=== PATIENT | female | born 1990 | race African-American/Black ===

== ENCOUNTER 2023-11-13 10:16 | Emergency (ER) | payer SELFPAY ==
[2023-11-13] MEDS ORDERED: NA CHLORIDE 0.9% 1,000 ML ONE (11:08)
[2023-11-13] MEDS ORDERED: PANTOPRAZOLE 40 MG INJ ONE (11:09)
[2023-11-13 11:40] LABS: Albumin 3.6 g/dL (3.4-5.0); Anion Gap 7.7 mEq/L (5.0-15.0); Bilirubin Total 0.4 mg/dL (0.2-1.0); Globulin 3.7 g/dL (2.3-3.5); Potassium 3.7 mEq/L (3.5-5.1); Protein, Total 7.3 g/dL (6.4-8.2)
[2023-11-13 11:42] LABS: PT Prothrombin Time 11.5 SECONDS (9.5-12.5); PTT, Activated Partial Thromb 34.2 SECONDS (24.3-36.9); Protime INR 1.05
[2023-11-13 12:38] LABS: Absolute Eosinophils 0.1 K/uL (0-0.5); Absolute Lymphocytes (CBC) 2.4 K/uL (0.7-4.9); Absolute Monocytes 0.5 K/uL (0.1-1.3); Basophils % 0.7 % (0-1.3); Eosinophils % 1.7 % (0-4.4); Hematocrit 36.5 % (36.0-45.0); Hemoglobin 12.4 g/dL (12.0-15.0); Lymphocytes % 39.4 % (15.3-44.8); MCH 31.6 pg (27.0-35.0); MPV 8.2 fL (7.6-11.3); Monocytes % 8.3 % (3.3-12.3); Neutrophils % 49.9 % (41.7-73.7); Nucleated Red Blood Cells % 0.2 % (0-0); Platelets 321 thou/uL (152-406); RBC Red Blood Cell Count 3.93 M/uL (3.86-4.86); Red Cell Distribution Width 13.3 % (12.1-15.2)
--- NOTE | 2023-11-13 13:31 | RAD REPORT ---
EXAM DESCRIPTION: CTAbdomen Pelvis W Contrast - 11/13/2023 12:59 pm CLINICAL HISTORY: Abdominal pain. ABD PAIN COMPARISON: No comparisons TECHNIQUE: Biphasic CT imaging of the abdomen and pelvis was performed with 100 ml non-ionic IV cont rast. All CT scans are performed using dose optimization technique as appropriate and may include automated exposure control or mA/KV adjustment according to patient size. FINDINGS: The lung bases are clear. The liver, spleen, pancreas, adrenal glands and kidneys are within normal limits. No bowel obstruction, free air, free fluid or abscess. The appendix is normal. There is a large amou nt of fecal retention seen throughout the colon. The endometrial stripe appears irregularly dilated w ith a bulky appearance of the cervix. Recommend correlation with Pap smear. No bulky lymphadenopathy No suspicious bony findings. IMPRESSION: Significant rectosigmoid fecal retention. Significant amount of fluid appears retained endometrial canal. There is a bulky appearance to the ce rvix as well. Suggest correlation with Pap smear/follow-up hysteroscopy.
--- NOTE | 2023-11-13 13:51 | EDPHYS ---
Physician Documentation [facility] Name: Eneida Pepe Age: 33 yrs Sex: Female : 1990 Arrival Date: 11/13/2023 Time: 10:16 Bed 8 Private MD: ED Physician Tonya Clayton HPI: 11/12 10:48 This 33 yrs old Black Female presents to ER via Unassigned with complaints of Bloody sb4 Stools. 10:48 patient states that she has known intestinal known ulcers for 5 years and that she will sb4 have rectal bleeding occasionally. she states that this episode she has had bleeding and pain so she came in to be evaluated. she was supposed to follow up with a specialist but never did. she is not on any PPI therapy. denies any nausea or vomiting. Historical: - Allergies: 10:41 No Known Allergies; rs5 - PMHx: 10:41 hemrhoids; rs5 - PSHx: 10:42 None; rs5 - Immunization history:: Adult Immunizations up to date. - Infectious Disease History:: Denies. - Social history:: Smoking status: Patient denies any tobacco usage or history of. ROS: 10:48 Constitutional: Negative for fever, chills, and weight loss, sb4 10:48 Abdomen/GI: Positive for abdominal pain, rectal bleeding, 10:48 All other systems are negative, Exam: 10:48 Constitutional: This is a well developed, well nourished patient who is awake, alert, sb4 and in no acute distress. Head/Face: Normocephalic, atraumatic. Eyes: Extra-ocular motions intact. Periorbital areas with no swelling, redness, or edema. ENT: Mucous membranes moist. Cardiovascular: Regular rate and rhythm with a normal S1 and S2. Respiratory: Lungs have equal breath sounds bilaterally, clear to auscultation and percussion. No rales, rhonchi or wheezes noted. No increased work of breathing, no retractions or nasal flaring. Abdomen/GI: Soft, non-tender, no distension. Skin: Warm, dry with normal turgor. Normal color with no rashes, no lesions, and no evidence of cellulitis. MS/ Extremity: Pulses equal, no cyanosis. Neurovascular intact. Full, normal range of motion. Neuro: Awake and alert, GCS 15, oriented to person, place, time, and situation. Motor strength 5/5 in all extremities. Sensory grossly intact. Vital Signs: 11:15 BP 117 / 81; Pulse 80; Resp 18; Temp 97.8(O); Pulse Ox 99% on R/A; rs5 12:00 BP 117 / 75; Pulse 69; Resp 18; Pulse Ox 100% on R/A; db 14:00 BP 122 / 82; Pulse 73; Resp 16; Pulse Ox 100% on R/A; rs5 MDM: 10:41 Patient medically screened. sb4 10:48 Differential diagnosis: peptic ulcer disease, hemorrhoids, colitis, gastroenteritis, sb4 diverticulitis. 13:49 Data reviewed: vital signs, nurses notes, lab test result(s), radiologic studies, and sb4 as a result, I will discharge patient. 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 11/12 10:46 Order name: CBC with Diff; Complete Time: 12:45 sb4 11/12 10:46 Order name: CMP; Complete Time: 11:43 sb4 11/12 10:46 Order name: Lipase; Complete Time: 11:43 sb4 11/12 10:46 Order name: Type And Screen; Complete Time: 12:08 sb4 11/12 10:46 Order name: Test, Serum; Complete Time: 11:43 sb4 11/12 10:46 Order name: PT-INR; Complete Time: 11:43 sb4 11/12 10:46 Order name: Ptt, Activated; Complete Time: 11:43 sb4 11/12 12:47 Order name: CT Abd/Pelvis - IV Contrast Only; Complete Time: 13:43 sb4 11/12 10:46 Order name: IV Saline Lock; Complete Time: 11:15 sb4 11/12 10:46 Order name: Labs collected and sent; Complete Time: 11:15 sb4 Administered Medications: 11:05 Drug: NS 0.9% IV 1000 ml IV at 1 bolus Per protocol; 1000 mL bolus Route: IV; Rate: 1 rs5 bolus; Site: right antecubital; 12:38 Follow up: Response: No adverse reaction; IV Status: Completed infusion; IV Intake: db 1000ml 11:05 Drug: Pantoprazole IVP 40 mg IVP once Route: IVP; Site: right antecubital; rs5 12:38 Follow up: Response: No adverse reaction db Disposition Summary: 11/13/23 13:50 Discharge Ordered Notes: Location: Home sb4 Problem: new sb4 Symptoms: have improved sb4 Condition: Stable sb4 Diagnosis - Constipation sb4 - Other hemorrhoids sb4 Followup: sb4 - With: Casa Banerjee MD - When: As needed - Reason: Recheck today's complaints, Re-evaluation by your physician Discharge Instructions: - Discharge Summary Sheet sb4 - Hemorrhoids sb4 - Constipation, Adult, [id number] sb4 Forms: - Patient Portal Instructions sb4 - Leadership Thank You Letter sb4 Signatures: Dispatcher [employer] Lian Skinner PA-C PA-C sb4 Herb Benitez RN RN rs5 Naye Majano RN db Corrections: (The following items were deleted from the chart) 10:46 10:46 CBC+H.LAB.BRZ ordered. EDMS EDMS 10:46 10:46 COMPREHENSIVE METABOLIC PANEL+C.LAB.BRZ ordered. EDMS EDMS 10:46 10:46 LIPASE+C.LAB.BRZ ordered. EDMS EDMS 10:46 10:46 TYPE AND SCREEN+BB.LAB.BRZ ordered. EDMS EDMS 10:46 10:46 TEST, SERUM+SC.LAB.BRZ ordered. EDMS EDMS 10:46 10:46 PROTIME (+INR)+COAG.LAB.BRZ ordered. EDMS EDMS 10:46 10:46 PTT, ACTIVATED+COAG.LAB.BRZ ordered. EDMS EDMS 11:19 10:48 The history from the nurse's notes was reviewed and I agree with what is rs5 documented. sb4
--- NOTE | 2023-11-13 13:51 | ER ---
Nurse's Notes [facility] Name: Eneida Pepe Age: 33 yrs Sex: Female : 1990 Arrival Date: 11/13/2023 Time: 10:16 Bed 8 Private MD: Diagnosis: Constipation;Other hemorrhoids Presentation: 11/12 11:15 Chief complaint: Patient states: "Bloody stools that started yesterday. This has rs5 happened before, the bleeding usually stops on it's own but I don't know what's causing it.". Coronavirus screen: At this time, the client does not indicate any symptoms associated with coronavirus-19. Ebola Screen: No symptoms or risks identified at this time. Initial Sepsis Screen: Does the patient meet any 2 criteria? No. Patient's initial sepsis screen is negative. Does the patient have a suspected source of infection? No. Patient's initial sepsis screen is negative. Risk Assessment: Do you want to hurt yourself or someone else? Patient reports no desire to harm self or others. Onset of symptoms was November 13, 2023. 11:15 Method Of Arrival: Ambulatory rs5 11:15 Acuity: DOV 3 rs5 Historical: - Allergies: 10:41 No Known Allergies; rs5 - PMHx: 10:41 hemrhoids; rs5 - PSHx: 10:42 None; rs5 - Immunization history:: Adult Immunizations up to date. - Infectious Disease History:: Denies. - Social history:: Smoking status: Patient denies any tobacco usage or history of. Screenin:41 [facility] ED Fall Risk Assessment (Adult) History of falling in the last 3 months, rs5 including since admission No falls in past 3 months (0 pts) Confusion or Disorientation No (0 pts) Intoxicated or Sedated No (0 pts) Impaired Gait No (0 pts) Mobility Assist Device Used No (0 pt) Altered Elimination No (0 pt) Score/Fall Risk Level 0 - 2 = Low Risk Oriented to surroundings, Maintained a safe environment. Abuse screen: Denies threats or abuse. Nutritional screening: No deficits noted. Tuberculosis screening: No symptoms or risk factors identified. Assessment: 10:41 General: Appears in no apparent distress. comfortable, Behavior is calm, cooperative. rs5 Pain: Complains of pain in RLQ Pain currently is 2 out of 10 on a pain scale. Quality of pain is described as aching, Is continuous. Neuro: Level of Consciousness is awake, alert, obeys commands, Oriented to person, place, time, situation. Cardiovascular: Patient's skin is warm and dry. Rhythm is regular. Respiratory: Airway is patent Respiratory effort is even, unlabored, Respiratory pattern is regular, symmetrical. GI: Abdomen is round non-distended, Abd is soft and non tender X 4 quads. GI: Reports bloody stool, since 11/12/23. : No signs and/or symptoms were reported regarding the genitourinary system. EENT: No signs and/or symptoms were reported regarding the EENT system. Derm: No signs and/or symptoms reported regarding the dermatologic system. 10:41 GI: Patient currently denies nausea. Musculoskeletal: Range of motion: intact in all rs5 extremities. 11:37 Reassessment: Patient and/or family updated on plan of care and expected duration. Pain rs5 level reassessed. Patient is alert, oriented x 3, equal unlabored respirations, skin warm/dry/pink. 13:36 Reassessment: Patient appears in no apparent distress at this time. Patient and/or db family updated on plan of care and expected duration. Pain level reassessed. Patient is alert, oriented x 3, equal unlabored respirations, skin warm/dry/pink. PATIENT BED CHANGED AND LINEN CLEANED. 14:02 Reassessment: Patient appears in no apparent distress at this time. Patient and/or db family updated on plan of care and expected duration. Pain level reassessed. Patient is alert, oriented x 3, equal unlabored respirations, skin warm/dry/pink. Patient states feeling better. Patient states symptoms have improved. Vital Signs: 11:15 BP 117 / 81; Pulse 80; Resp 18; Temp 97.8(O); Pulse Ox 99% on R/A; rs5 12:00 BP 117 / 75; Pulse 69; Resp 18; Pulse Ox 100% on R/A; db 14:00 BP 122 / 82; Pulse 73; Resp 16; Pulse Ox 100% on R/A; rs5 ED Course: 10:16 Patient arrived in ED. mr 10:26 [facility]es [facility] sb4 10:26 Tonya Clayton MD is Attending Physician. sb4 10:41 Patient has correct armband on for positive identification. Placed in gown. Bed in low rs5 position. Call light in reach. Side rails up X2. 10:41 No provider procedures requiring assistance completed. rs5 10:44 Herb Benitez, JOSE is Primary Nurse. rs5 11:17 Triage completed. rs5 13:00 CT Abd/Pelvis - IV Contrast Only In Process Unspecified. EDMS 13:49 Casa Banerjee MD is Referral Physician. sb4 14:02 Provided Education on: DISCHARGE. db 14:02 IV discontinued, intact, bleeding controlled, No redness/swelling at site. db 14:03 Arm band placed on. db Administered Medications: 11:05 Drug: NS 0.9% IV 1000 ml IV at 1 bolus Per protocol; 1000 mL bolus Route: IV; Rate: 1 rs5 bolus; Site: right antecubital; 12:38 Follow up: Response: No adverse reaction; IV Status: Completed infusion; IV Intake: db 1000ml 11:05 Drug: Pantoprazole IVP 40 mg IVP once Route: IVP; Site: right antecubital; rs5 12:38 Follow up: Response: No adverse reaction db Medication: 14:02 VIS not applicable for this client. db Intake: 12:38 IV: 1000ml; Total: 1000ml. db Outcome: 13:50 Discharge ordered by . sb4 14:02 Discharged to home ambulatory, db 14:02 Condition: stable 14:02 Discharge instructions given to patient, Instructed on discharge instructions, follow up and referral plans. 14:03 Patient left the ED. db Signatures: Dispatcher [employer] [facility] Enriqueta Carrero, Reg Reg mr Naye Majano, RN RN db Lian Montes PA-C PAИван sb4 Herb Benitez, RN RN rs5 Corrections: (The following items were deleted from the chart) 11:19 10:48 The history from the nurse's notes was reviewed and I agree with what is rs5 documented. sb4 14:02 13:00 BP 122 / 82; Pulse 73bpm; Resp 16bpm; Pulse Ox 100% RA; db db 16:00 13:30 BP 122 / 82; Pulse 73bpm; Resp 16bpm; Pulse Ox 100% RA; db rs5 16:00 14:10 BP 122 / 82; Pulse 73bpm; Resp 16bpm; Pulse Ox 100% RA; rs5 rs5
[2023-11-13 14:12] VITALS: BP 122/82; TEMP 97.8; O2SAT 100
== END 2023-11-13 14:03 | disposition home or self-care (01) ==
LOC: ER 10:16
DX: K64.8 Other hemorrhoids (principal); K59.00 Constipation, unspecified
CPT/HCPCS: 36415; 74177; 80053; 83690; 84703; 85025; 85610; 85730; 86850; 86900; 86901; 96361; 96374; 99284; C9113; J7030; Q9967